=== PATIENT | female | born 1950 | race Caucasian/White ===

== ENCOUNTER → 2016-06-30 | Outpatient (CLI) | payer OTHER ==
--- NOTE | 2016-06-30 12:08 | MA ---
Bilateral Screening Digital Mammograms With iCAD Clinical Indications: Routine screening mammograms. Technique: Standard digital cephalocaudal and mediolateral oblique projections were obtained. This examination was processed by the iCAD computer-aided detection system. Comparison: 2014, 2013, 2012 Breast density: 3: 50 to 75%. Findings: Computer-aided detection was reviewed. No suspicious cluster of microcalcifications, new d ominant densities or architectural distortion. Benign vascular calcifications in both breasts. Impression: 1. ACR BI-RADS 2: Benign. 2. No mammographic evidence of malignancy. Recommendation: 1. If physical exam is negative, recommend annual mammograms with next mammogram June 2017. 2. Dense mammographic pattern limits the sensitivity of mammography in this patient. If there is a cl inically palpable abnormality, recommend additional imaging with ultrasound, if clinically indicated. [facility] will send a result letter to the patient. Negative mammography should not preclude additional workup of a clinically suspicious finding. The patient's information is entered into a reminder system with a target due date for her next mammo gram.
== END ==
LOC: CIMAGING 10:34
DX: Z12.31 Encounter for screening mammogram for malignant neoplasm of breast (principal)
CPT/HCPCS: G0202

== ENCOUNTER → 2017-09-21 | Outpatient (CLI) | payer OTHER | LOC: CIMAGING 13:44 | PROVIDERS: ATTEND Internal Medicine | DX: Z12.31 Encounter for screening mammogram for malignant neoplasm of breast (principal); Z80.3 Family history of malignant neoplasm of breast ==

== ENCOUNTER → 2018-09-23 | Outpatient (CLI) | payer OTHER | LOC: CIMAGING 07:31 | PROVIDERS: ATTEND Internal Medicine | DX: Z12.31 Encounter for screening mammogram for malignant neoplasm of breast (principal); Z80.3 Family history of malignant neoplasm of breast ==